=== PATIENT | female | born 1975 | race Caucasian/White ===

== ENCOUNTER → 2017-07-07 | Outpatient (CLI) | payer BC ==
[~2017-07-07] MED LIST: ACHD5005 PO; AMIT25TA9; CYCL10TA9 PO; IBP600T1 PO; LOSA1TAB19; METO-270; NAPR-1067; NORE1TAB95; RT-ALBUTEROL SULF 2.5 MG/3 ML PRE-MIX VIAL IH ONE; SULF1TAB35 PO; TOPI100T11; TOPI200T19 PO; [UNRECOGNIZED DRUG - CODE]; [UNRECOGNIZED DRUG - OTHER] PO
--- NOTE | 2017-07-07 15:56 | Diagnostic Imaging Report ---
CHEST PA/LAT (2 VIEW) Indication: Chronic cough Comparison: 08/19/2016 Findings: No focal pneumonic consolidation, pleural effusion or pneumothorax. Normal heart size and pulmonary vasculature. Impression: No acute cardiopulmonary process or evidence of interstitial lung disease. Dictated by: Dictated on workstation # [id number]
== END ==
LOC: RT 12:39
PROVIDERS: ATTEND Otolaryngology Otolaryngology/Facial Plastic Surgery
DX: R05 Cough (principal)
CPT/HCPCS: 71020; 94060; 94640; 94726; 94729

== ENCOUNTER → 2017-07-13 | Outpatient (CLI) | payer BC ==
[~2017-07-13] MED LIST changes: -RT-ALBUTEROL SULF 2.5 MG/3 ML PRE-MIX VIAL IH ONE
--- NOTE | 2017-07-14 19:30 | Diagnostic Imaging Report ---
EXAMINATION: Digital mammogram bilateral screening with tomosynthesis. INDICATION: Screening. This is the patient's baseline study. At this time, there are no current complaints. The current study was also evaluated with a Computer Aided Detection (CAD) system. FINDINGS: The fibroglandular tissue in both breasts is heterogeneously dense. This does limit the sensitivity of this exam. There is no primary or secondary sign of malignancy noted. The tomographic views fail to show any sign of malignancy either. IMPRESSION: 1. There is no evidence of malignancy. 2. The patient should have her annual bilateral screening mammogram on schedule in June of 2018. ACR BI-RADS Category 1: Negative. Result letter will be mailed to the patient. Note: At least 10% of breast cancer is not imaged by mammography. Dictated on workstation # [id number]
== END ==
LOC: RAD 16:02
PROVIDERS: ATTEND Obstetrics & Gynecology
DX: Z12.31 Encounter for screening mammogram for malignant neoplasm of breast (principal)
CPT/HCPCS: 77067

== ENCOUNTER 2018-01-29 09:51 | Emergency (ER) | payer BC ==
[~2018-01-29] VITALS: Ht 167.6 cm; Wt 90.7 kg
[~2018-01-29 09:51] MED LIST changes: -LOSA1TAB19; +LOSA1TAB26; -METO-270; +METO-387
[2018-01-29] MEDS ORDERED: ANTACID SUSP 30 ML UDC (MYLANTA) PO ONE (10:45)
[2018-01-29] MEDS ORDERED: LIDOCAINE 2% VISCOUS 15 ML UDC PO ONE (10:45)
--- NOTE | 2018-01-29 11:19 | ED Cough/URI ---
General Stated Complaint: CP,SOA Source: patient Exam Limitations: no limitations History of Present Illness Date Seen by Provider: Jan 29, 2018 Time Seen by Provider: 11:17 Initial Comments To ER with reports of central chest pain since about 645 this morning. Pain is in the center of her chest, dull in nature, worsened with deep breathing. She denies any shortness of breath. She denies any unilateral leg swelling. She was formerly on estrogen for migraines but discontinued this by herself about 7-8 months ago. No history of DVT. 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 Nonsmoker. Has recently had a runny nose, sore throat and some greenish nasal secretions. Timing/Duration: constant Severity/Quality: moderate Associated Symptoms: nasal drainage Allergies and Home Medications Allergies Coded Allergies: pseudoephedrine HCl (Unverified Allergy, Unknown, 10/09/16) triprolidine HCl (Unverified Allergy, Unknown, 10/09/16) Home Medications Cyclobenzaprine Hcl 10 Mg Tablet, 1 EACH PO BID, (Reported) Ibuprofen 600 Mg Tab, 600 MG PO Q6HR Prescribed by: KAREN LLAMAS on 07/04/13 0950 Sulfamethoxazole/Trimethoprim 1 Each Tablet, 1 EACH PO BID Prescribed by: SWATI CASTELAN on 10/09/16 1844 Patient Home Medication List Home Medication List Reviewed: Yes Constitutional: see HPI, No chills, No fever EENTM: see HPI Respiratory: see HPI, No cough, No dyspnea on exertion Cardiovascular: see HPI, chest pain Genitourinary: no symptoms reported Musculoskeletal: no symptoms reported Skin: no symptoms reported Psychiatric/Neurological: No Symptoms Reported Hematologic/Lymphatic: No Symptoms Reported Past Qxzlxvm-Ttdkwl-Cdimzj Hx Patient Social History Recent Foreign Travel: No Contact w/Someone Who Travel: No Recent Hopitalizations: No Immunizations Up To Date Tetanus Booster (TDap): Less than 5yrs Seasonal Allergies Seasonal Allergies: No Surgeries Surgeries: Cardiac, Oophorectomy, Tubal Ligation Cardiovascular Cardiac Disorders: Hypertension Neurological Neurological Disorders: Headaches /Migraines Reproductive System Hx Reproductive Disorders: Yes (OVARIAN MASS, dysmenorrhea) 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 Family Medical History Significant Family History: Cancer, Diabetes, Hypertension Physical Exam Vital Signs Vital Signs - First Documented 01/29/18 01/29/18 10:00 12:49 Temp 98.2 Pulse 81 Resp 18 B/P (MAP) 120/80 (93) Pulse Ox 98 O2 Delivery Room Air Capillary Refill : General Appearance: WD/WN, no apparent distress Eyes: Bilateral Eye Normal Inspection, Bilateral Eye PERRL, Bilateral Eye EOMI HEENT: PERRL/EOMI, normal ENT inspection Neck: non-tender, full range of motion Respiratory: normal breath sounds, no respiratory distress, no accessory muscle use Cardiovascular: regular rate, rhythm, no murmur Gastrointestinal: normal bowel sounds, non tender, soft Extremities: normal range of motion, non-tender Neurologic/Psychiatric: alert, normal mood/affect, oriented x 3 Skin: normal color, warm/dry Progress/Results/Core Measures Suspected Sepsis SIRS Temperature: Pulse: Respiratory Rate: Laboratory Tests 01/29/18 11:20: White Blood Count 6.2 Blood Pressure / Mean: Laboratory Tests 01/29/18 11:20: Creatinine 1.11, Platelet Count 187, Total Bilirubin 0.3 Results/Orders Lab Results Laboratory Tests Test 01/29/18 11:20 Range/Units White Blood Count 6.2 4.3-11.0 10^3/uL Red Blood Count 4.11 L 4.35-5.85 10^6/uL Hemoglobin 11.8 11.5-16.0 G/DL Hematocrit 35 35-52 % Mean Corpuscular Volume 84 80-99 FL Mean Corpuscular Hemoglobin 29 25-34 PG Mean Corpuscular Hemoglobin Concent 34 32-36 G/DL Red Cell Distribution Width 12.2 10.0-14.5 % Platelet Count 187 130-400 10^3/uL Mean Platelet Volume 11.1 H 7.4-10.4 FL Neutrophils (%) (Auto) 64 42-75 % Lymphocytes (%) (Auto) 27 12-44 % Monocytes (%) (Auto) 7 0-12 % Eosinophils (%) (Auto) 2 0-10 % Basophils (%) (Auto) 1 0-10 % Neutrophils # (Auto) 4.0 1.8-7.8 X 10^3 Lymphocytes # (Auto) 1.7 1.0-4.0 X 10^3 Monocytes # (Auto) 0.4 0.0-1.0 X 10^3 Eosinophils # (Auto) 0.1 0.0-0.3 10^3/uL Basophils # (Auto) 0.0 0.0-0.1 10^3/uL D-Dimer < 0.27 0.00-0.49 UG/ML Sodium Level 136 135-145 MMOL/L Potassium Level 4.0 3.6-5.0 MMOL/L Chloride Level 106 98-107 MMOL/L Carbon Dioxide Level 25 21-32 MMOL/L Anion Gap 5 5-14 MMOL/L Blood Urea Nitrogen 16 7-18 MG/DL Creatinine 1.11 0.60-1.30 MG/DL Estimat Glomerular Filtration Rate 54 BUN/Creatinine Ratio 14 Glucose Level 115 H 70-105 MG/DL Calcium Level 9.4 8.5-10.1 MG/DL Total Bilirubin 0.3 0.1-1.0 MG/DL Aspartate Amino Transf (AST/SGOT) 15 5-34 U/L Alanine Aminotransferase (ALT/SGPT) 13 0-55 U/L Alkaline Phosphatase 64 40-136 U/L Troponin I < 0.30 <0.30 NG/ML Total Protein 6.8 6.4-8.2 GM/DL Albumin 4.2 3.2-4.5 GM/DL Lipase 32 8-78 U/L My Orders Orders - SWATI CASTELAN APRN Cbc With Automated Diff (01/29/18 10:36) Comprehensive Metabolic Panel (01/29/18 10:36) Lipase (01/29/18 10:36) Troponin I (01/29/18 10:36) Ekg Tracing (01/29/18 10:36) Chest 1 View, Ap/Pa Only (01/29/18 10:36) Fibrin Degradation Products (01/29/18 10:36) Medications Given in ED Current Medications Medications Dose Ordered Sig/Koko Route Start Time Stop Time Status Last Admin Dose Admin Al Hydrox/Mg Hydrox/Simethicone 30 ml ONCE ONCE PO 01/29/18 10:45 01/29/18 10:46 DC 01/29/18 11:21 30 ML Lidocaine HCl 15 ml ONCE ONCE PO 01/29/18 10:45 01/29/18 10:46 DC 01/29/18 11:21 15 ML Vital Signs/I&O Vital Sign - Last 12Hours 01/29/18 01/29/18 10:00 12:49 Temp 98.2 98.2 Pulse 81 72 Resp 18 18 B/P (MAP) 120/80 (93) 118/80 (93) Pulse Ox 98 O2 Delivery Room Air Capillary Refill : Diagnostic Imaging Diagonstic Imaging: Xray Plain Films/CT/US/NM/MRI: chest Comments NAME: CHIKA THOMAS [facility] REC#: [id number] PT STATUS: REG ER : 1975 PHYSICIAN: SWATI CASTELAN APRN ADMIT DATE: 01/29/18/ER Draft Date of Exam:01/29/18 CHEST 1 VIEW, AP/PA ONLY INDICATION: Chest pain. Time of exam 11:36 AM Correlation is made with prior study from 07/07/2017. The heart size is normal. The pulmonary vascularity is unremarkable. The lungs are clear. No infiltrate, effusion or pneumothorax is detected. Impression: No acute cardiopulmonary process is detected. Dictated on workstation # [id number] Dict: 01/29/18 1144 Trans: 01/29/18 1145 [facility] [id number] Interpreted by: MIRIAM MARTINEZ MD Electronically signed by: Departure Impression Impression: Primary Impression: Pleuritic chest pain Disposition: HOME, SELF-CARE Condition: Stable Departure-Patient Inst. Decision time for Depature: 12:07 Referrals: THERESE NOBLE MD (PCP/Family) Primary Care Physician Patient Instructions: Pleuritic Chest Pain (DC) Add. Discharge Instructions: 1. Return to the emergency room for any worsening symptoms 2. Follow-up with doctor next week for recheck 3. Work/School Note: Work Release Form Date Seen in the Emergency Department: Jan 29, 2018 Return to Work: Jan 30, 2018 SWATI CASTELAN APRN Jan 29, 2018 11:19
[2018-01-29 11:36] LABS: BASOPHILS % (AUTO) 1 % (0-10); EOSINOPHILS # (AUTO) 0.1 10^3/uL (0.0-0.3); EOSINOPHILS % (AUTO) 2 % (0-10); HEMATOCRIT 35 % (35-52); HEMOGLOBIN 11.8 G/DL (11.5-16.0); LYMPHOCYTES # (AUTO) 1.7 X 10^3 (1.0-4.0); LYMPHOCYTES % (AUTO) 27 % (12-44); MEAN CORPUSCULAR HEMOGLOBIN 29 PG (25-34); MEAN CORPUSCULAR HGB CONC 34 G/DL (32-36); MEAN CORPUSCULAR VOLUME 84 FL (80-99); MEAN PLATELET VOLUME 11.1 FL (7.4-10.4); MONOCYTES # (AUTO) 0.4 X 10^3 (0.0-1.0); MONOCYTES % (AUTO) 7 % (0-12); NEUTROPHILS % (AUTO) 64 % (42-75); PLATELET COUNT 187 10^3/uL (130-400); RED BLOOD COUNT 4.11 10^6/uL (4.35-5.85); RED CELL DISTRIBUTION WIDTH 12.2 % (10.0-14.5); WHITE BLOOD COUNT 6.2 10^3/uL (4.3-11.0)
--- NOTE | 2018-01-29 11:46 | Diagnostic Imaging Report ---
INDICATION: Chest pain. Time of exam 11:36 AM Correlation is made with prior study from 07/07/2017. The heart size is normal. The pulmonary vascularity is unremarkable. The lungs are clear. No infiltrate, effusion or pneumothorax is detected. Impression: No acute cardiopulmonary process is detected. Dictated by: Dictated on workstation # [id number]
[2018-01-29 12:05] LABS: ALANINE AMINOTRANSFERASE 13 U/L (0-55); ALBUMIN 4.2 GM/DL (3.2-4.5); ALKALINE PHOSPHATASE 64 U/L (40-136); BILIRUBIN,TOTAL 0.3 MG/DL (0.1-1.0); BUN/CREATININE RATIO 14; CALCIUM 9.4 MG/DL (8.5-10.1); CARBON DIOXIDE 25 MMOL/L (21-32); CHLORIDE 106 MMOL/L (98-107); CREATININE SERUM 1.11 MG/DL (0.60-1.30); GFR ESTIMATED 54; GLUCOSE 115 MG/DL (70-105); LIPASE 32 U/L (8-78); SODIUM 136 MMOL/L (135-145); TOTAL PROTEIN 6.8 GM/DL (6.4-8.2)
[2018-01-29 12:49] VITALS: BP 118/80
== END 2018-01-29 12:49 | disposition home or self-care (01) ==
LOC: EDUNIT# 09:51 → ER 09:53
DX: R07.81 Pleurodynia (principal); G43.909 Migraine, unspecified, not intractable, without status migrainosus; I10 Essential (primary) hypertension; Z98.51 Tubal ligation status; Z88.8 Allergy status to other drugs, medicaments and biological substances; Z88.1 Allergy status to other antibiotic agents
CPT/HCPCS: 36415; 71045; 80053; 83690; 84484; 85025; 85379

== ENCOUNTER → 2018-12-12 | Outpatient (CLI) | payer BC, OTHER ==
[~2018-12-12] MED LIST changes: +CATHETER FLUSH 10 ML SYR IV PRN; +IOHEXOL 350 MG/ML 100 ML (OMNIPAQUE 350) VIAL IV ONE; +NS 100 ML (IVPB) BAG IV ONE; +RECEIVED CONTRAST (Hold Metformin) IV SCH
[2018-12-12 17:11] LABS: MEAN PLATELET VOLUME 10.6 FL (7.4-10.4); RED BLOOD COUNT 4.27 10^6/uL (4.35-5.85); RED CELL DISTRIBUTION WIDTH 13.1 % (10.0-14.5); WHITE BLOOD COUNT 6.9 10^3/uL (4.3-11.0)
[2018-12-12 17:30] LABS: ALBUMIN 4.4 GM/DL (3.2-4.5); BILIRUBIN,TOTAL 0.3 MG/DL (0.1-1.0); CALCIUM 9.5 MG/DL (8.5-10.1); CREATININE SERUM 1.04 MG/DL (0.60-1.30); POTASSIUM 3.4 MMOL/L (3.6-5.0); TOTAL PROTEIN 7.2 GM/DL (6.4-8.2)
--- NOTE | 2018-12-12 17:56 | Diagnostic Imaging Report ---
PROCEDURE: CT abdomen and pelvis with contrast. TECHNIQUE: Multiple contiguous axial images were obtained through the abdomen and pelvis after administration of intravenous contrast. INDICATION: Abdominal pain. COMPARISON: None available. FINDINGS: Lower chest: The lung bases are clear. No pericardial or pleural effusion. Peritoneum: No free intraperitoneal air or fluid. Liver and biliary system: There is a circumscribed 1.5 x 1.1 cm hypodense cyst within the left hepatic lobe. Remainder of the liver is normal. The gallbladder is normal. No biliary duct dilation. Spleen and Pancreas: Spleen is normal. The pancreas enhances normally without mass lesion or peripancreatic inflammatory changes. Adrenals: Normal. tract: The kidneys enhance normally without suspicious mass or obstruction. Urinary bladder is distended without wall thickening. There is a large delayed enhancing intramural mass within the uterine body and fundus measuring 4.1 x 5.0 cm. GI tract: Stomach is decompressed. No bowel obstruction. No pericolonic inflammatory changes. Normal appendix. Vasculature and Lymph nodes: Normal caliber aorta. No abdominal or pelvic lymphadenopathy. Musculoskeletal: No concerning osseous lesion. IMPRESSION: 1. No acute obstructive or inflammatory process in the abdomen or pelvis. 2. Large intramural fibroid within the uterine body/fundus measuring up to 5 cm. Dictated by: Dictated on workstation # [id number]
== END ==
LOC: RAD 16:47
PROVIDERS: ATTEND Physician Assistant
DX: D25.1 Intramural leiomyoma of uterus (principal)
CPT/HCPCS: 36415; 74177; 80053; 83690; 84703; 85027

== ENCOUNTER → 2019-01-10 | Outpatient (CLI) | payer BC ==
[~2019-01-10] MED LIST changes: -CATHETER FLUSH 10 ML SYR IV PRN; -IOHEXOL 350 MG/ML 100 ML (OMNIPAQUE 350) VIAL IV ONE; -NS 100 ML (IVPB) BAG IV ONE; -RECEIVED CONTRAST (Hold Metformin) IV SCH
--- NOTE | 2019-01-10 12:14 | Diagnostic Imaging Report ---
PROCEDURE: US Non-ob pelvis comp/trans. TECHNIQUE: Multiple realtime grayscale images were obtained of the pelvis in various projections endovaginally. Transabdominal imaging was also performed. INDICATION: Abnormal uterine bleeding and uterine fibroid. The uterus measures 9.1 x 5.7 x 6.1 cm. Endometrium is 6 cm in thickness. Mass noted in the fundus of the uterus on CT study from 12/12/2018 is not as well seen by ultrasound. There does appear to be a fundal fibroid measuring approximately 2 cm in size. There is generalized parenchymal heterogeneity present and lesion may actually be larger than that correlating with the CT abnormality. No other myometrial masses are seen. The left ovary is not visualized and may be surgically absent. Right ovary measures 1.6 x 1.5 x 1.4 cm. No adnexal mass or free fluid is seen. IMPRESSION: Heterogeneous uterus and at least a 2 cm fundal fibroid is present. No definite lesion the size of the mass noted on CT is identified. Perhaps MRI would be useful for better characterization. No other significant abnormality is detected. Dictated by: Dictated on workstation # [id number]
--- NOTE | 2019-01-10 19:18 | Diagnostic Imaging Report ---
INDICATION: Palpable lump in the upper-outer right breast. COMPARISON: Comparison is made with prior mammogram from 07/13/2017. TECHNIQUE: 2D and 3D bilateral diagnostic mammography was performed with computer-aided detection (CAD) system. BB marker was placed at the area of palpable abnormality in the upper-outer right breast. FINDINGS: Both breasts are heterogeneously dense, limiting the sensitivity of mammography. No mass or malignant appearing microcalcifications are seen. Axillae are unremarkable. IMPRESSION: No mammographic features suspicious for malignancy are identified. Even so, directed sonographic interrogation of the area of palpable abnormality in the upper-outer right breast is recommended and will be performed today. ACR BI-RADS Category 0: Incomplete. (Needs additional imaging evaluation). Result letter will be mailed to the patient. Note: At least 10% of breast cancer is not imaged by mammography. Dictated by: Dictated on workstation # [id number]
--- NOTE | 2019-01-10 19:56 | Diagnostic Imaging Report ---
INDICATION: Palpable lump in the upper-outer right breast. Study is performed for further evaluation. Correlation is made with diagnostic mammogram earlier the same day. FINDINGS: Sonographic interrogation of the area of lump in the upper outer right breast was performed. No sonographic abnormality is seen. No solid or cystic mass is detected. IMPRESSION: No sonographic abnormality is identified. Continued close clinical and self breast exam is recommended to confirm stability of the palpable abnormality. ACR BI-RADS Category 1: Negative. Dictated by: Dictated on workstation # [id number]
== END ==
LOC: RAD 08:31
PROVIDERS: ATTEND Obstetrics & Gynecology
DX: N63.11 Unspecified lump in the right breast, upper outer quadrant (principal); D25.1 Intramural leiomyoma of uterus
CPT/HCPCS: 76830; 76856; 77066

== ENCOUNTER 2019-01-21 05:35 | Outpatient (CLI) | payer BC ==
[~2019-01-21] VITALS: Ht 162.6 cm; Wt 88.0 kg
[~2019-01-21 05:35] MED LIST changes: -AMIT25TA9; +AMIT25TA9 PO; -LOSA1TAB26; +LOSA1TAB26 PO; -METO-387; +METO-387 PO; -TOPI100T11; +TOPI100T11 PO
[2019-01-21] MEDS ORDERED: MELA5TAB14 PO (13:06)
[2019-01-21] MEDS ORDERED: ESOM20CA58 PO (13:06)
[2019-01-21] MEDS ORDERED: CYCL10TA9 PO ×2 (13:06)
[2019-01-21] MEDS ORDERED: POTA10TA10 PO (13:06)
== END 2019-01-21 13:15 ==
LOC: PREOP 05:35
PROVIDERS: ATTEND Obstetrics & Gynecology
DX: Z01.818 Encounter for other preprocedural examination (principal)

== ENCOUNTER 2019-01-24 08:38 | Day surgery (SDC) | payer BC ==
[~2019-01-24] VITALS: Ht 162.6 cm; Wt 88.0 kg
[~2019-01-24 08:38] MED LIST changes: +ESOM20CA58 PO; +MELA5TAB14 PO; +POTA10TA10 PO
[2019-01-24 09:31] LABS: BASOPHILS % (AUTO) 1 % (0-10); EOSINOPHILS # (AUTO) 0.1 10^3/uL (0.0-0.3); EOSINOPHILS % (AUTO) 2 % (0-10); HEMATOCRIT 35 % (35-52); HEMOGLOBIN 11.8 G/DL (11.5-16.0); LYMPHOCYTES # (AUTO) 1.4 X 10^3 (1.0-4.0); LYMPHOCYTES % (AUTO) 28 % (12-44); MEAN CORPUSCULAR HEMOGLOBIN 28 PG (25-34); MEAN CORPUSCULAR HGB CONC 34 G/DL (32-36); MEAN CORPUSCULAR VOLUME 82 FL (80-99); MEAN PLATELET VOLUME 11.2 FL (7.4-10.4); MONOCYTES # (AUTO) 0.3 X 10^3 (0.0-1.0); MONOCYTES % (AUTO) 7 % (0-12); NEUTROPHILS # (AUTO) 3.2 X 10^3 (1.8-7.8); NEUTROPHILS % (AUTO) 64 % (42-75); PLATELET COUNT 212 10^3/uL (130-400); RED CELL DISTRIBUTION WIDTH 12.8 % (10.0-14.5)
--- NOTE | 2019-01-24 09:38 | Discharge Inst-Women's Service ---
Discharge Inst-Women's Serv Depart Medication/Instructions New, Converted or Re-Newed RX: RX on Chart Consults/Follow Up Additional Follow Up: Yes Orders/Referrals Dr. Goldberg in 7-[address] Ashlyn Koo in 8 weeks Activity Activity: Activity as Tolerated Driving Instructions: No Driving for 1 Week NO SMOKING: NO SMOKING Nothing Inside Vagina: No Douching, No [place], No Tampons Diet Discharge Diet: No Restrictions Symptoms to Report to : Bleeding Excessive, Pain Increased, Fever Over 101 Degrees F, Vaginal Bleeding Increase, Questions/Concerns For Any Problems or Questions: Contact Your Physician Skin/Wound Care Infection Signs and Symptoms: Increased Redness, Foul Odor of Wound, Increased Drainage, Skin Itchy or Has a Rash, Increased Swelling, Temperature Above 101 F Operative Area Clean and Dry: Keep Incision Clean/Dry Stitches/[place]/Dermabond: Dermabond, Care of Stitches Bathing Instructions: KAREN Link DO Jan 24, 2019 09:38
[2019-01-24] MEDS ORDERED: metroNIDAZOLE 500MG/100ML IVPB 100 ML ONE (09:40)
[2019-01-24] MEDS: LACTATED RINGERS 1,000 ML IV SCH ×2 (09:40→18:10)
[2019-01-24] MEDS ORDERED: SIME80TA16 PO (09:40)
[2019-01-24] MEDS ORDERED: DOCU100C37 PO (09:40)
[2019-01-24] MEDS ORDERED: IBUP-844 PO (09:40)
[2019-01-24] MEDS ORDERED: ceFAZolin 2 GM IV Premixed 50 ML ONE (09:40)
[2019-01-24] MEDS ORDERED: HYDR-34 PO (09:40)
[2019-01-24] MEDS ORDERED: BUPIVACAINE 0.25% 30 ML (SENSORCAINE) VIAL ONE (09:43)
[2019-01-24] MEDS ORDERED: CHLORASEPTIC LOZENGE MM PRN (09:45)
[2019-01-24] MEDS ORDERED: ANTACID SUSP 30 ML UDC (MYLANTA) PO PRN (09:45)
[2019-01-24] MEDS ORDERED: ZOLPIDEM 5 MG (AMBIEN) TAB PO PRN (09:45)
[2019-01-24] MEDS ORDERED: DOCUSATE SODIUM 100 MG (COLACE) CAP PO PRN (09:45)
[2019-01-24] MEDS ORDERED: HYDROcodone/APAP 7.5 MG/325 MG (LORTAB, LORCET PLUS) TABLET PO PRN (09:45)
[2019-01-24] MEDS ORDERED: SIMETHICONE 80 MG (MYLICON) CHEW PO PRN (09:45)
[2019-01-24] MEDS ORDERED: LACTATED RINGERS 1,000 ML IV PRN (09:49)
[2019-01-24] MEDS ORDERED: LACTATED RINGERS 1,000 ML IV ONE (09:49)
[2019-01-24] MEDS ORDERED: FAMOTIDINE 20MG/2ML IV (PEPCID) ONE (09:55)
[2019-01-24] MEDS ORDERED: fentaNYL INJECTION 100 MCG/2 ML AMP ONE ×2 (09:56→11:14)
[2019-01-24] MEDS ORDERED: MIDAZOLAM 2 MG/2 ML (VERSED) VIAL ONE (09:56)
[2019-01-24] MEDS ORDERED: ROCURONIUM 10 MG/ML 5 ML SYRINGE IV ONE (09:56)
[2019-01-24] MEDS ORDERED: proPOfol 200 MG/20 ML (DIPRIVAN) VIAL IV ONE (09:56)
[2019-01-24] MEDS ORDERED: LIDOCAINE PF 2% 5 ML (XYLOCAINE) VIAL ONE (09:56)
[2019-01-24] MEDS ORDERED: SEVOFLURANE (ULTANE) 15 ML INHAL SOLN ONE ×7 (09:58→11:50)
[2019-01-24] MEDS ORDERED: DEXAMETHASONE 10 MG/ML (DECADRON) 1 ML VIAL ONE (09:58)
[2019-01-24] MEDS ORDERED: ONDANSETRON 4 MG/2 ML (SDV) Z0FRAN IV ONE (10:00)
[2019-01-24] MEDS ORDERED: ceFAZolin 2 GM IV Premixed 50 ML IV ONE (10:00)
[2019-01-24] MEDS ORDERED: metroNIDAZOLE 500MG/100ML IVPB 100 ML IV ONE (10:00)
[2019-01-24] MEDS ORDERED: FAMOTIDINE 20MG/2ML IV (PEPCID) IV ONE (10:00)
[2019-01-24 10:15] VITALS: BP 136/94
--- NOTE | 2019-01-24 10:24 | Progress Note-Pre Operative ---
Pre-Operative Progress Note H&P Reviewed The H&P was reviewed, patient examined and no changes noted. Date Seen by Provider: Jan 24, 2019 Time Seen by Provider: 10:15 Date H&P Reviewed: Jan 24, 2019 Time H&P Reviewed: 10:15 Pre-Operative Diagnosis: CPP, Fibroid uterus, AUB KAREN LLAMAS DO Jan 24, 2019 10:24
[2019-01-24] MEDS ORDERED: GLYCOPYRROLATE 0.2 MG/ML (ROBINUL) 2 ML VIAL ONE (11:44)
[2019-01-24] MEDS ORDERED: NEOSTIGMINE 1 MG/ML 5 ML SYRINGE ONE (11:44)
[2019-01-24] MEDS ORDERED: morphine INJ 10 MG/ML 1ML (SYR OR VIAL) IVP ONE (12:15)
[2019-01-24] MEDS ORDERED: ONDANSETRON 4 MG/2 ML (SDV) Z0FRAN IVP PRN (12:15)
[2019-01-24] MEDS ORDERED: MEPERIDINE (DEMEROL) INJ 50 MG/ML IVP ONE (12:15)
[2019-01-24] MEDS: KETOROLAC 30 MG/ML VIAL IV PRN ×2 (12:35→18:07)
--- NOTE | 2019-01-24 13:05 | NUR ---
CHIKA THOMAS presented to unit via BED from RECOVERY accompanied by GEOVANNA TOVAR RN AND KANU CLAYTON RN,FOLLOWING SURGERY. VS taken. REPORT RECIEVED. CHIKA THOMAS oriented to bed controls, call light, TV, heat, and A/C controls.
[2019-01-24 13:08] VITALS: BP 139/93
[2019-01-24] MEDS: ONDANSETRON 4 MG/2 ML (SDV) Z0FRAN IV PRN ×3 (14:20→22:04)
[2019-01-24 15:40] VITALS: BP 127/80
--- NOTE | 2019-01-24 17:25 | NUR ---
Dr Goldberg rounded. Discussed plan of care with pt and pt's family. They verbalized understanding. Lap sites open to air via Dr Goldberg.
--- NOTE | 2019-01-24 19:33 | OPERATIVE REPORT ---
DATE OF SERVICE: 01/24/2019 PREOPERATIVE DIAGNOSES: 1. A 43-year-old female with fibroid uterus. 2. Abnormal uterine bleeding. 3. Chronic pelvic pain. POSTOPERATIVE DIAGNOSES: 1. A 43-year-old female with fibroid uterus. 2. Abnormal uterine bleeding. 3. Chronic pelvic pain. PROCEDURE PERFORMED: Robotic-assisted total laparoscopic hysterectomy with right salpingectomy. SURGEON: Alpesh Llamas DO. SPECIAL MACHINE STITCHER: Lisa Alanis, nurse practitioner student. ANESTHESIA: General endotracheal. ESTIMATED BLOOD LOSS: Minimal. URINE OUTPUT: 150 mL clear at the end of procedure. FLUIDS: 1200 mL lactated Ringer's solution. FINDINGS: A bulky multilobular-appearing uterus with multiple subserosal fibroids and some apparent intramural fibroids, grossly normal-appearing right ovary, surgically absent left ovary, right fallopian tube with evidence of previous tubal ligation. SPECIMEN SENT: Uterus and right fallopian tube. INDICATIONS: This 43-year-old female patient returned to my office with frustration about ongoing bleeding as well as chronic pelvic pain. The patient reports in the past six months, it has gotten much heavier and much more painful. She has been undergoing more conservative measures for the past 4-5 years as I have been seeing and taking care of her for the past 5 years. She is wishing to proceed with more definitive measures. We repeated ultrasound showing slightly enlarged multiple fibroids throughout the uterus itself. I discussed with the patient continuing suppressive therapy in the form of either Depo-Lupron, Depo-Provera or even continuous control to prevent periods; however, due to the amount of pain she is having, she is wishing to proceed with more definitive measures. The risks of hysterectomy were discussed with the patient in detail including risks of bleeding, infection, damage to surrounding structures including, but not limited to bowel, bladder, ureter or kidney, possible need for reoperation, postoperative complications that could occur, postoperative expectations, recovery timeframe, risk from anesthesia and even . After everything was discussed with the patient, consent was obtained in the preoperative area and the patient was taken to the operating room. OPERATIVE REPORT IN DETAIL: Once in the operating room, general anesthesia was found to be adequate, placed in dorsal lithotomy position and prepped and draped in normal sterile fashion. Timeout was performed. A Arce catheter was placed using sterile technique. A weighted speculum was inserted in the patient's vagina. A right angle retractor was used to visualize the cervix, which was grasped at 12 o'clock position using a long Allis clamp and #0 Vicryl suture was then placed in the anterior lip of the cervix and the suture was then used as my retraction point. Allis clamp was removed. I then gently sounded the uterine cavity that was found to be 8 cm. I then selected an 8 cm Emiliana uterine manipulator and a 3.5 cm colpotomy ring advancing the manipulator tip into the uterine fundus and deployed the balloon and I advanced a colpotomy ring around the vaginal fornix after which excellent bimanual manipulation is appreciated on exam. I then removed all the other instruments from the patient's vagina. I performed a change gloves. I turned my attention to the abdomen where infraumbilically I infiltrated this area using 0.25% Marcaine, making an 8 mm incision with a knife and directed a Veress needle through the incision until intraperitoneal placement was confirmed using saline drop test. I then proceeded with insufflation using CO2 gas and opening pressure of 4 mmHg was noted. I proceeded with a maximum pressure of 15 mmHg at which point, I removed the Veress needle and introduced an 8 mm blunt da Daniel camera trocar. Once this was in place, I am able to confirm intraperitoneal placement using the da Daniel laparoscope. A brief scan of the upper abdominal anatomy and my entry site revealed grossly appearing normal anatomy with no evidence of damage upon entry. I then had the patient placed in steep Trendelenburg and I am able see all of the pelvic findings as described above. I placed two lateral trocars of both 8 mm trocars approximately 8 cm lateral to my infraumbilical trocar. The skin was infiltrated using 0.25% Marcaine, 8 mm incisions were made with the knife and the trocars were placed under direct visualization of the laparoscope. Once these were in place, I brought in the da Daniel robot and docked in the appropriate fashion. Placing the vessel sealer in the left hand and monopolar sarahi in the right hand, I performed the following dissection: On the right side, I started with the uteroovarian ligament, bipolar cauterized and transected using the vessel sealer. I then created a window in the mesosalpinx and took this laterally amputating the fallopian tube from its blood supply. I then grasped the round ligament, bipolar cauterized and transected using the vessel sealer, grasped the entire broad ligament, bipolar cauterized and transected using the vessel sealer down to the level of the lower uterine segment, at which point I the anterior and posterior leaflets of the broad ligament. The anterior leaflet of the broad ligament was taken around the anterior vaginal fornix and posterior leaflet was taken around the posterior vaginal fornix. This allows me to skeletonize the uterine vessels laterally, which are bipolar cauterized and transected using the vessel sealer. I then approached the left side where there is no left adnexa. The ovary and fallopian tube are absent. I started at the remnant of the uteroovarian ligament, bipolar cauterized and transected using the vessel sealer. I then grasped the round ligament, bipolar cauterized this and transected using vessel sealer. I then grasped the entire broad ligament, bipolar cauterized and transected using the vessel sealer down to the level of the lower uterine segment where in a similar fashion, I the anterior and posterior leaflets of the broad ligament. Anterior leaflet was taken around to the other side dissection on the anterior vaginal fornix. The posterior leaflet in a similar fashion is taken around to the posterior side on the posterior vaginal fornix. This allows me to skeletonize the uterine vessels laterally which are bipolar cauterized and transected using the vessel sealer. I then created a colpotomy at 12 o'clock position using monopolar sarahi and took this circumferentially around the vaginal fornix amputating the cervix away from the vaginal cuff. The entire specimen was then removed through the vagina leaving the ovary in place. I then proceeded with closing the vaginal cuff. In the lateral vaginal apices, I used 2-0 Vicryl suture in a [id number] fashion colposuspending them to the uterosacral ligaments. I closed the remainder of the vaginal cuff using 2-0 V-Loc in a running fashion, after which there was no active bleeding noted from any of my dissection planes. I then copiously irrigated the pelvis with normal saline and no active bleeding noted from any of my dissection planes. I undocked da Daniel robot and proceeded with the remainder of the case laparoscopically after scrubbing back into the surgery. I then placed Surgiflo over all my planes of dissection for excellent postoperative hemostasis management. Once again, there was no active bleeding noted from any of my dissection planes. I had taken the patient out of steep Trendelenburg and removed the lateral trocars under direct visualization of the laparoscope. The infraumbilical trocar was left in place to release insufflation and to introduce 10 mL of 0.25% Marcaine for postoperative pain management. I then removed this trocar as well, closed the skin using 4-0 Monocryl in interrupted subcuticular stitches. Dermabond was applied to the incision and sterile dressing with adhesive white tape. The patient tolerated the procedure well and sent to recovery in stable condition. Lap and sponge counts were correct at the end of the procedure. Instrument count was correct as well. Arce catheter was left in place. Ancef 2 grams, 500 mg of Flagyl were given preoperatively for infection prophylaxis. Job ID: [id number] DocumentID: [id number] Dictated Date: 01/24/2019 12:02:09 Carrier Blower Date: 01/24/2019 19:33:13 Dictated By: ALPESH LLAMAS DO
[2019-01-24] MEDS ORDERED: FLU QUADRIvalent (5+ YOA) 2018-2019 (AFLURIA) 0.5 ML IM ONE (20:15)
[2019-01-24 20:30] VITALS: BP 114/76
[2019-01-25] VITALS: BP 114/73
[2019-01-25] MEDS ORDERED: IBUPROFEN 600 MG (MOTRIN) TAB PO PRN (02:15)
[2019-01-25 06:25] VITALS: BP 100/58
[2019-01-25 07:30] VITALS: BP 107/61
--- NOTE | 2019-01-25 07:48 | Anesthesia-General Post-Op ---
General Patient Condition Mental Status/LOC: Same as Preop Cardiovascular: Satisfactory Nausea/Vomiting: Absent Respiratory: Satisfactory Pain: Controlled Complications: Absent Post Op Complications Complications None Follow Up Care/Instructions Patient Instructions None needed. Anesthesia/Patient Condition Patient Condition Patient is doing well, no complaints, stable vital signs, no apparent adverse anesthesia problems. No complications reported per nursing. CARI BELTRÁN CRNA Jan 25, 2019 07:48
--- OUTSIDE RECORDS SUMMARY | 2019-01-27 02:17 | XMS REPORT ---
Author Author KRIS BASS Organization [facility] Address [address] [place] [address] Care Team Providers Care Tree Scout Name Role Phone BEV BASSYL Unavailable PROBLEMS Unknown Problems ALLERGIES Substance Reaction Event Type Date Status N.K.D.A. Unknown Non Drug Allergy Nov, Unknown SOCIAL HISTORY No smoking Hx information available PLAN OF CARE Activity Details Follow Up prn Reason: VITAL SIGNS Height 63 in 2016-12-26 Weight 195 lbs 2016-12-26 Temperature 99.3 degrees Fahrenheit 2016-12-26 Heart Rate 103 bpm 2016-12-26 Respiratory Rate 18 2016-12-26 BMI 34.54 kg/m2 2016-12-26 Blood pressure systolic 133 mmHg 2016-12-26 Blood pressure diastolic 88 mmHg 2016-12-26 MEDICATIONS Medication Instructions Dosage Frequency Start Date End Date Duration Status Tessalon Perles 200 mg Orally Three times a day prn cough 1 capsule as needed Nov, Dec, 10 days Active Hydrochlorothiazide Active Flonase Allergy Relief 50 MCG/ACT Nasally twice a day 1 spray in each nostril 12h Oct, 30 day(s) Active Topamax Active Flexeril Active Elavil Active Potassimin Active RESULTS Name Result Date Reference Range STREP A (IN HOUSE) STREP A negative Control + Lot # [id number] Exp date 07/27/2017 PROCEDURES Procedure Date Ordered Related Diagnosis Body Site STREP A ASSAY W/OPTIC Dec 26, 2016 Office Visit, Est Pt., Level 4 Dec 26, 2016 IMMUNIZATIONS No Known Immunizations
--- OUTSIDE RECORDS SUMMARY | 2019-01-27 02:17 | XMS REPORT ---
Author Author KRIS BASS Organization [facility] Address [address] [place] [address] Care Team Providers Care Hydrogen Cell Tender Name Role Phone [email or web address] Unavailable PROBLEMS Unknown Problems ALLERGIES No Known Allergies SOCIAL HISTORY Never Assessed PLAN OF CARE Activity Details Follow Up prn Reason: VITAL SIGNS Height 63 in 2017-01-09 Weight 196.3 lbs 2017-01-09 Temperature 98.1 degrees Fahrenheit 2017-01-09 Heart Rate 94 bpm 2017-01-09 Respiratory Rate 18 2017-01-09 BMI 34.77 kg/m2 2017-01-09 Blood pressure systolic 123 mmHg 2017-01-09 Blood pressure diastolic 70 mmHg 2017-01-09 MEDICATIONS Medication Instructions Dosage Frequency Start Date End Date Duration Status Lo Loestrin Fe Active Hydrochlorothiazide Active Elavil Active Nexium Active Flexeril Active Topamax Active Flonase Allergy Relief 50 MCG/ACT Nasally twice a day 1 spray in each nostril 12h Oct, 30 day(s) Active Potassium Chloride Active Fish Oil Active Bactrim DS 800-160 MG Orally Twice a day 1 tablet 12h Dec,Dec 10 day(s) Active Tessalon Perles 200 mg Orally Three times a day prn cough 1 capsule as needed Nov, Dec, 10 days Active Naproxen Sodium Active Cinnamon Active RESULTS No Results PROCEDURES Procedure Date Ordered Result Body Site DEPO MEDROL 80 MG/ML Jan 09, 2017 THER/PROPH/DIAG INJ, SC/IM Jan 09, 2017 IMMUNIZATIONS Vaccine Route Administration Date Status DEPO MEDROL 80 MG/ML IM Intramuscular Jan 09, 2017 Administered
--- OUTSIDE RECORDS SUMMARY | 2019-01-27 02:17 | XMS REPORT ---
Author Author MARTHA ZHANG Organization [facility] Address [address] [place] [address] Care Team Providers Care Senior Formulation Scientist Name Role Phone VICENTE MARTHA Unavailable PROBLEMS Type Condition ICD9-CM Code [id number] Code Onset Dates Condition Status SNOMED Code Problem Adjustment disorder with depressed mood F43.21 Active [id number] ALLERGIES No Information ENCOUNTERS Encounter Location Date Diagnosis [facility] [id number] [place] [address] [phone] Oct, [facility] [address] [phone] Sep, Adjustment disorder with depressed mood F43.21 [facility] [id number] [place] [address] [id number] Feb, Cough R05 and Candidiasis B37.9 [facility] [address] [phone] Dec, Acute non-recurrent maxillary sinusitis J01.00 [facility] [id number] [place] [address] [phone] Nov, Cough R05 and Sore throat J02.9 [facility] [id number] [place] [address] [phone] Nov, Acute bacterial conjunctivitis of left eye H10.32 [facility] [id number] [place] [address] [phone] Oct, Acute recurrent ethmoidal sinusitis J01.21 IMMUNIZATIONS No Known Immunizations SOCIAL HISTORY Never Assessed REASON FOR VISIT Intake PLAN OF CARE Activity Details Follow Up next available Reason:depression VITAL SIGNS MEDICATIONS Unknown Medications RESULTS No Results PROCEDURES Procedure Date Ordered Result Body Site Psych diagnostic evaluation, established patient Oct 17, 2018 INSTRUCTIONS MEDICATIONS ADMINISTERED No Known Medications
--- OUTSIDE RECORDS SUMMARY | 2019-01-27 02:18 | XMS REPORT | Continuity of Care Document ---
Author Author [facility] Organization [facility] Address Unknown Phone Unavailable Allergies Active Description Code Type Severity Reaction Onset Reported/Identified Relationship to Patient Clinical Status Yes pseudoephedrine HCl [id number] Drug Allergy Unknown N/A 10/09/2016 Yes triprolidine HCl [id number] Drug Allergy Unknown N/A 10/09/2016 Medications There is no data. 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 05/18/2015 THERESE NOBLE MD Ot 784.0 05/22/2015 THERESE NOBLE MD Ot 784.0 04/06/2016 JANET MCALLISTER MD Ot I10 ESSENTIAL (PRIMARY) HYPERTENSION 04/06/2016 JANET MCALLISTER MD Ot K21.9 GASTRO-ESOPHAGEAL REFLUX DISEASE WITHOUT 04/06/2016 JANET MCALLISTER MD Ot R00.0 TACHYCARDIA, UNSPECIFIED 04/06/2016 JANET MCALLISTER MD Ot R07.89 OTHER CHEST PAIN 08/19/2016 JANET MCALLISTER MD Ot I10 ESSENTIAL (PRIMARY) HYPERTENSION 08/19/2016 JANET MCALLISTER MD Ot K21.9 GASTRO-ESOPHAGEAL REFLUX DISEASE WITHOUT 08/19/2016 JANET MCALLISTER MD Ot R00.0 TACHYCARDIA, UNSPECIFIED 08/19/2016 JANET MCALLISTER MD Ot R07.89 OTHER CHEST PAIN 08/19/2016 MANDEEP MOSQUEDA MD Ot I10 ESSENTIAL (PRIMARY) HYPERTENSION 08/19/2016 MANDEEP MOSQUEDA MD Ot R07.89 OTHER CHEST PAIN 08/19/2016 MANDEEP MOSQUEDA MD Ot R07.9 CHEST PAIN, UNSPECIFIED 08/19/2016 MANDEEP MOSQUEDA MD Ot Z79.899 OTHER CUSTODIAL (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 THERAPY 08/23/2016 JAYLIN BARCENAS, MANDEEP San Ot I10 ESSENTIAL (PRIMARY) HYPERTENSION 08/23/2016 JAYLIN BARCENAS, MANDEEP San Ot R07.89 OTHER CHEST PAIN 08/23/2016 JAYLIN BARCENAS, MANDEEP San Ot R07.9 CHEST PAIN, UNSPECIFIED 08/23/2016 JAYLIN BARCENAS, MANDEEP San Ot Z79.899 OTHER CUSTODIAL (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 THERAPY 10/09/2016 SWATI CASTELAN APRN Ot I10 ESSENTIAL (PRIMARY) HYPERTENSION 10/09/2016 SWATI CASTELAN APRN Ot K52.9 NONINFECTIVE GASTROENTERITIS AND COLITIS 10/09/2016 SWATI CASTELAN APRN Ot N39.0 URINARY TRACT INFECTION, SITE NOT SPECIF 10/09/2016 SWATI CASTELAN FOOD EDITOR Ot R11.2 NAUSEA WITH VOMITING, UNSPECIFIED 10/09/2016 SWATI CASTELAN APRN Ot R51 HEADACHE 10/09/2016 SWATI CASTELAN APRN Ot Z79.899 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 (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 THERAPY 10/26/2016 SWATI CASTELAN FOOD EDITOR Ot I10 ESSENTIAL (PRIMARY) HYPERTENSION 10/26/2016 SWATI CASTELAN APRN Ot K52.9 NONINFECTIVE GASTROENTERITIS AND COLITIS 10/26/2016 SWATI CASTELAN APRN Ot N39.0 URINARY TRACT INFECTION, SITE NOT SPECIF 10/26/2016 SWATI CASTELAN FOOD EDITOR Ot R11.2 NAUSEA WITH VOMITING, UNSPECIFIED 10/26/2016 SWATI CASTELAN APRN Ot R51 HEADACHE 10/26/2016 SWATI CASTELAN FOOD EDITOR Ot Z79.899 OTHER CUSTODIAL (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 THERAPY 07/06/2017 JANET MCALLISTER MD Ot I10 ESSENTIAL (PRIMARY) HYPERTENSION 07/06/2017 JANET MCALLISTER MD Ot K21.9 GASTRO-ESOPHAGEAL REFLUX DISEASE WITHOUT 07/06/2017 JANET MCALLISTER MD Ot R00.0 TACHYCARDIA, UNSPECIFIED 07/06/2017 JANET MCALLISTER MD Ot R07.89 OTHER CHEST PAIN 07/24/2017 JANUARY BARCENAS, KAREN Judd Ot R05 COUGH 08/01/2017 KAREN LLAMAS DO Ot Z12.31 ENCNTR SCREEN MAMMOGRAM FOR MALIGNANT NE 01/29/2018 SWATI CASTELAN APRN Ot G43.909 MIGRAINE, UNSP, NOT INTRACTABLE, WITHOUT 01/29/2018 SWATI CASTELAN FOOD EDITOR Ot I10 ESSENTIAL (PRIMARY) HYPERTENSION 01/29/2018 SWATI CASTELAN APRN Ot R07.81 PLEURODYNIA 01/29/2018 SWATI CASTELAN FOOD EDITOR Ot Z88.1 ALLERGY STATUS TO OTHER ANTIBIOTIC AGENT 01/29/2018 SWATI CASTELAN APRN Ot Z88.8 ALLERGY STATUS TO OTH DRUG/MEDS/BIOL SUB 01/29/2018 SWATI CASTELAN APRN Ot Z98.51 TUBAL LIGATION STATUS 05/04/2018 KAREN LLAMAS DO Ot 625.9 FEM GENITAL SYMPTOMS NOS 05/04/2018 KAREN LLAMAS DO Ot 620.9 NONINFL DIS OVA/ADNX NOS 05/04/2018 KAREN LLAMAS DO Ot V72.63 PRE-PROCEDURAL LABORATORY EXAMINATION 05/04/2018 KAREN LLAMAS DO Ot V74.8 SCREEN-BACTERIAL DIS NEC 12/14/2018 AUNDREA SAN Ot D25.1 INTRAMURAL LEIOMYOMA OF UTERUS 12/26/2018 AUNDREA SAN Ot D25.1 INTRAMURAL LEIOMYOMA OF UTERUS 01/10/2019 KAREN LLAMAS DO Ot D25.1 INTRAMURAL LEIOMYOMA OF UTERUS 01/10/2019 KAREN LLAMAS DO Ot N63.11 UNSPECIFIED LUMP IN THE RIGHT BREAST, UP 01/22/2019 KAREN LLAMAS DO Ot Z01.818 ENCOUNTER FOR OTHER PREPROCEDURAL EXAMIN 01/24/2019 KAREN LLAMAS DO Ot D25.1 INTRAMURAL LEIOMYOMA OF UTERUS 01/24/2019 KAREN LLAMAS DO, Ot N63.11 UNSPECIFIED LUMP IN THE RIGHT BREAST, UP Procedures There is no data. Results Test Result Range Complete blood count (CBC) with automated white blood cell (WBC) differential - 08/19/16 09:25 Blood leukocytes automated count (number/volume) 5.2 10*3/uL 4.3-11.0 Blood erythrocytes automated count (number/volume) 4.12 10*6/uL 4.35-5.85 Venous blood hemoglobin measurement (mass/volume) 12.4 g/dL 11.5-16.0 Blood hematocrit (volume fraction) 36 % 35-52 Automated erythrocyte mean corpuscular volume 87 [foz_us] 80-99 Automated erythrocyte mean corpuscular hemoglobin (mass per erythrocyte) 30 pg 25-34 Automated erythrocyte mean corpuscular hemoglobin concentration measurement ( mass/volume) 35 g/dL 32-36 Automated erythrocyte distribution width ratio 11.4 % 10.0-14.5 Automated blood platelet count (count/volume) 215 10*3/uL 130-400 Automated blood platelet mean volume measurement 10.9 [foz_us] 7.4-10.4 Automated blood neutrophils/100 leukocytes 56 % 42-75 Automated blood lymphocytes/100 leukocytes 37 % 12-44 Blood monocytes/100 leukocytes 6 % 0-12 Automated blood eosinophils/100 leukocytes 1 % 0-10 Automated blood basophils/100 leukocytes 1 % 0-10 Blood neutrophils automated count (number/volume) 2.9 10*3 1.8-7.8 Blood lymphocytes automated count (number/volume) 1.9 10*3 1.0-4.0 Blood monocytes automated count (number/volume) 0.3 10*3 0.0-1.0 Automated eosinophil count 0.1 10*3/uL 0.0-0.3 Automated blood basophil count (count/volume) 0.1 10*3/uL 0.0-0.1 PT panel in platelet poor plasma by coagulation assay - 08/19/16 09:25 Prothrombin time (PT) in platelet poor plasma by coagulation assay 13.0 s 12.2-14.7 INR in platelet poor plasma or blood by coagulation assay 1.0 0.8-1.4 Activated partial thromboplastin time (aPTT) in platelet poor plasma bycoagulation assay - 08/19/16 09:25 Activated partial thromboplastin time (aPTT) in platelet poor plasma bycoagulation assay 28 s 24-35 Comprehensive metabolic panel - 08/19/16 09:25 Serum or plasma sodium measurement (moles/volume) 137 mmol/L 135-145 Serum or plasma potassium measurement (moles/volume) 3.7 mmol/L 3.6-5.0 Serum or plasma chloride measurement (moles/volume) 107 mmol/L 98-107 Carbon dioxide 20 mmol/L 21-32 Serum or plasma anion gap determination (moles/volume) 10 mmol/L 5-14 Serum or plasma urea nitrogen measurement (mass/volume) 21 mg/dL 7-18 Serum or plasma creatinine measurement (mass/volume) 0.94 mg/dL 0.60-1.30 Serum or plasma urea nitrogen/creatinine mass ratio 22 NRG Serum or plasma creatinine measurement with calculation of estimated glomerular filtration rate > NRG Serum or plasma glucose measurement (mass/volume) 116 mg/dL 70-105 Serum or plasma calcium measurement (mass/volume) 9.0 mg/dL 8.5-10.1 Serum or plasma total bilirubin measurement (mass/volume) 0.3 mg/dL 0.1-1.0 Serum or plasma alkaline phosphatase measurement (enzymatic activity/volume) 44 U/L 40-136 Serum or plasma aspartate aminotransferase measurement (enzymatic activity/ volume) 15 U/L 5-34 Serum or plasma alanine aminotransferase measurement (enzymatic activity/volume ) 14 U/L 0-55 Serum or plasma protein measurement (mass/volume) 6.6 g/dL 6.4-8.2 Serum or plasma albumin measurement (mass/volume) 4.1 g/dL 3.2-4.5 Magnesium - 08/19/16 09:25 Magnesium 2.2 mg/dL 1.8-2.4 Serum or plasma troponin i.cardiac measurement (mass/volume) - 08/19/16 09:25 Serum or plasma troponin i.cardiac measurement (mass/volume) < ng/ mL <0.30 Myoglobin, serum - 08/19/16 09:25 Myoglobin, serum 42.7 ng/mL 10.0-92.0 Complete urinalysis with reflex to culture - 10/09/16 17:28 Urine color determination YELLOW NRG Urine clarity determination SLIGHTLY CLOUDY NRG Urine pH measurement by test strip 5 5-9 Specific gravity of urine by test strip 1.025 1.016- 1.022 Urine protein assay by test strip, semi-quantitative 2+ NEGATIVE Urine glucose detection by automated test strip NEGATIVE NEGATIVE Erythrocytes detection in urine sediment by light microscopy 1+ NEGATIVE Urine ketones detection by automated test strip NEGATIVE NEGATIVE Urine nitrite detection by test strip NEGATIVE NEGATIVE Urine total bilirubin detection by test strip NEGATIVE NEGATIVE Urine urobilinogen measurement by automated test strip (mass/volume) NORMAL NORMAL Urine leukocyte esterase detection by dipstick 2+ NEGATIVE Automated urine sediment erythrocyte count by microscopy (number/high power field) [HPF] NRG Automated urine sediment leukocyte count by microscopy (number/high power field ) [HPF] NRG Bacteria detection in urine sediment by light microscopy MODERATE NRG Squamous epithelial cells detection in urine sediment by light microscopy 10-25 NRG Crystals detection in urine sediment by light microscopy NONE NRG Casts detection in urine sediment by light microscopy NONE NRG Mucus detection in urine sediment by light microscopy NEGATIVE NRG Complete urinalysis with reflex to culture YES NRG Bacterial urine culture - 10/09/16 17:28 URINE CULTURE RESULTS <10,000/ML NRG Complete blood count (CBC) with automated white blood cell (WBC) differential - 10/09/16 17:36 Blood leukocytes automated count (number/volume) 12.1 10*3/uL 4.3-11.0 Blood erythrocytes automated count (number/volume) 4.73 10*6/uL 4.35-5.85 Venous blood hemoglobin measurement (mass/volume) 14.3 g/dL 11.5-16.0 Blood hematocrit (volume fraction) 40 % 35-52 Automated erythrocyte mean corpuscular volume 84 [foz_us] 80-99 Automated erythrocyte mean corpuscular hemoglobin (mass per erythrocyte) 30 pg 25-34 Automated erythrocyte mean corpuscular hemoglobin concentration measurement ( mass/volume) 36 g/dL 32-36 Automated erythrocyte distribution width ratio 11.8 % 10.0-14.5 Automated blood platelet count (count/volume) 203 10*3/uL 130-400 Automated blood platelet mean volume measurement 11.5 [foz_us] 7.4-10.4 Automated blood neutrophils/100 leukocytes 93 % 42-75 Automated blood lymphocytes/100 leukocytes 4 % 12-44 Blood monocytes/100 leukocytes 3 % 0-12 Automated blood eosinophils/100 leukocytes 0 % 0-10 Automated blood basophils/100 leukocytes 0 % 0-10 Blood neutrophils automated count (number/volume) 11.2 10*3 1.8-7.8 Blood lymphocytes automated count (number/volume) 0.5 10*3 1.0-4.0 Blood monocytes automated count (number/volume) 0.3 10*3 0.0-1.0 Automated eosinophil count 0.1 10*3/uL 0.0-0.3 Automated blood basophil count (count/volume) 0.0 10*3/uL 0.0-0.1 Comprehensive metabolic panel - 10/09/16 17:36 Serum or plasma sodium measurement (moles/volume) 139 mmol/L 135-145 Serum or plasma potassium measurement (moles/volume) 3.1 mmol/L 3.6-5.0 Serum or plasma chloride measurement (moles/volume) 106 mmol/L 98-107 Carbon dioxide 21 mmol/L 21-32 Serum or plasma anion gap determination (moles/volume) 12 mmol/L 5-14 Serum or plasma urea nitrogen measurement (mass/volume) 21 mg/dL 7-18 Serum or plasma creatinine measurement (mass/volume) 1.01 mg/dL 0.60-1.30 Serum or plasma urea nitrogen/creatinine mass ratio 21 NRG Serum or plasma creatinine measurement with calculation of estimated glomerular filtration rate 60 NRG Serum or plasma glucose measurement (mass/volume) 130 mg/dL 70-105 Serum or plasma calcium measurement (mass/volume) 9.2 mg/dL 8.5-10.1 Serum or plasma total bilirubin measurement (mass/volume) 0.7 mg/dL 0.1-1.0 Serum or plasma alkaline phosphatase measurement (enzymatic activity/volume) 51 U/L 40-136 Serum or plasma aspartate aminotransferase measurement (enzymatic activity/ volume) 17 U/L 5-34 Serum or plasma alanine aminotransferase measurement (enzymatic activity/volume ) 18 U/L 0-55 Serum or plasma protein measurement (mass/volume) 7.5 g/dL 6.4-8.2 Serum or plasma albumin measurement (mass/volume) 4.6 g/dL 3.2-4.5 Lipase - 10/09/16 17:36 Lipase 26 U/L 8-78 Blood manual differential performed detection - 10/09/16 17:36 Blood monocytes/100 leukocytes 2 % NR Manual blood segmented neutrophils/100 leukocytes 87 % NRG Blood band neutrophils/100 leukocytes 6 % NRG Manual blood lymphocytes/100 leukocytes 5 % NRG Manual eosinophils/100 leukocytes in nose 0 % NR Manual blood basophils/100 leukocytes 0 % NRG Blood erythrocyte morphology finding identification NORMAL NR Complete blood count (CBC) with automated white blood cell (WBC) differential - 01/29/18 11:20 Blood leukocytes automated count (number/volume) 6.2 10*3/uL 4.3-11.0 Blood erythrocytes automated count (number/volume) 4.11 10*6/uL 4.35-5.85 Venous blood hemoglobin measurement (mass/volume) 11.8 g/dL 11.5-16.0 Blood hematocrit (volume fraction) 35 % 35-52 Automated erythrocyte mean corpuscular volume 84 [foz_us] 80-99 Automated erythrocyte mean corpuscular hemoglobin (mass per erythrocyte) 29 pg 25-34 Automated erythrocyte mean corpuscular hemoglobin concentration measurement ( mass/volume) 34 g/dL 32-36 Automated erythrocyte distribution width ratio 12.2 % 10.0-14.5 Automated blood platelet count (count/volume) 187 10*3/uL 130-400 Automated blood platelet mean volume measurement 11.1 [foz_us] 7.4-10.4 Automated blood neutrophils/100 leukocytes 64 % 42-75 Automated blood lymphocytes/100 leukocytes 27 % 12-44 Blood monocytes/100 leukocytes 7 % 0-12 Automated blood eosinophils/100 leukocytes 2 % 0-10 Automated blood basophils/100 leukocytes 1 % 0-10 Blood neutrophils automated count (number/volume) 4.0 10*3 1.8-7.8 Blood lymphocytes automated count (number/volume) 1.7 10*3 1.0-4.0 Blood monocytes automated count (number/volume) 0.4 10*3 0.0-1.0 Automated eosinophil count 0.1 10*3/uL 0.0-0.3 Automated blood basophil count (count/volume) 0.0 10*3/uL 0.0-0.1 Fibrin D-dimer FEU measurement in platelet poor plasma (mass/volume) - 11:20 Fibrin D-dimer FEU measurement in platelet poor plasma (mass/volume) < ug/mL 0.00-0.49 Comprehensive metabolic panel - 01/29/18 11:20 Serum or plasma sodium measurement (moles/volume) 136 mmol/L 135-145 Serum or plasma potassium measurement (moles/volume) 4.0 mmol/L 3.6-5.0 Serum or plasma chloride measurement (moles/volume) 106 mmol/L 98-107 Carbon dioxide 25 mmol/L 21-32 Serum or plasma anion gap determination (moles/volume) 5 mmol/L 5-14 Serum or plasma urea nitrogen measurement (mass/volume) 16 mg/dL 7-18 Serum or plasma creatinine measurement (mass/volume) 1.11 mg/dL 0.60-1.30 Serum or plasma urea nitrogen/creatinine mass ratio 14 NRG Serum or plasma creatinine measurement with calculation of estimated glomerular filtration rate 54 NRG Serum or plasma glucose measurement (mass/volume) 115 mg/dL 70-105 Serum or plasma calcium measurement (mass/volume) 9.4 mg/dL 8.5-10.1 Serum or plasma total bilirubin measurement (mass/volume) 0.3 mg/dL 0.1-1.0 Serum or plasma alkaline phosphatase measurement (enzymatic activity/volume) 64 U/L 40-136 Serum or plasma aspartate aminotransferase measurement (enzymatic activity/ volume) 15 U/L 5-34 Serum or plasma alanine aminotransferase measurement (enzymatic activity/volume ) 13 U/L 0-55 Serum or plasma protein measurement (mass/volume) 6.8 g/dL 6.4-8.2 Serum or plasma albumin measurement (mass/volume) 4.2 g/dL 3.2-4.5 Serum or plasma troponin i.cardiac measurement (mass/volume) - 01/29/18 11:20 Serum or plasma troponin i.cardiac measurement (mass/volume) < ng/ mL <0.30 Lipase - 01/29/18 11:20 Lipase 32 U/L 8-78 Urine beta human chorionic gonadotropin (hCG) measurement - 12/12/18 16:00 Urine beta human chorionic gonadotropin (hCG) measurement NEGATIVE NEGATIVE Automated blood complete blood count (hemogram) panel - 12/12/18 17:02 Blood leukocytes automated count (number/volume) 6.9 10*3/uL 4.3-11.0 Blood erythrocytes automated count (number/volume) 4.27 10*6/uL 4.35-5.85 Venous blood hemoglobin measurement (mass/volume) 12.0 g/dL 11.5-16.0 Blood hematocrit (volume fraction) 35 % 35-52 Automated erythrocyte mean corpuscular volume 82 [foz_us] 80-99 Automated erythrocyte mean corpuscular hemoglobin (mass per erythrocyte) 28 pg 25-34 Automated erythrocyte mean corpuscular hemoglobin concentration measurement ( mass/volume) 35 g/dL 32-36 Automated erythrocyte distribution width ratio 13.1 % 10.0-14.5 Automated blood platelet count (count/volume) 250 10*3/uL 130-400 Automated blood platelet mean volume measurement 10.6 [foz_us] 7.4-10.4 Comprehensive metabolic panel - 12/12/18 17:02 Serum or plasma sodium measurement (moles/volume) 139 mmol/L 135-145 Serum or plasma potassium measurement (moles/volume) 3.4 mmol/L 3.6-5.0 Serum or plasma chloride measurement (moles/volume) 106 mmol/L 98-107 Carbon dioxide 22 mmol/L 21-32 Serum or plasma anion gap determination (moles/volume) 11 mmol/L 5-14 Serum or plasma urea nitrogen measurement (mass/volume) 19 mg/dL 7-18 Serum or plasma creatinine measurement (mass/volume) 1.04 mg/dL 0.60-1.30 Serum or plasma urea nitrogen/creatinine mass ratio 18 NRG Serum or plasma creatinine measurement with calculation of estimated glomerular filtration rate 58 NRG Serum or plasma glucose measurement (mass/volume) 104 mg/dL 70-105 Serum or plasma calcium measurement (mass/volume) 9.5 mg/dL 8.5-10.1 Serum or plasma total bilirubin measurement (mass/volume) 0.3 mg/dL 0.1-1.0 Serum or plasma alkaline phosphatase measurement (enzymatic activity/volume) 66 U/L 40-136 Serum or plasma aspartate aminotransferase measurement (enzymatic activity/ volume) 15 U/L 5-34 Serum or plasma alanine aminotransferase measurement (enzymatic activity/volume ) 13 U/L 0-55 Serum or plasma protein measurement (mass/volume) 7.2 g/dL 6.4-8.2 Serum or plasma albumin measurement (mass/volume) 4.4 g/dL 3.2-4.5 CALCIUM CORRECTED 9.2 mg/dL 8.5-10.1 Lipase - 12/12/18 17:02 Lipase 34 U/L 8-78 Complete blood count (CBC) with automated white blood cell (WBC) differential - 01/24/19 09:15 Blood leukocytes automated count (number/volume) 5.0 10*3/uL 4.3-11.0 Blood erythrocytes automated count (number/volume) 4.25 10*6/uL 4.35-5.85 Venous blood hemoglobin measurement (mass/volume) 11.8 g/dL 11.5-16.0 Blood hematocrit (volume fraction) 35 % 35-52 Automated erythrocyte mean corpuscular volume 82 [foz_us] 80-99 Automated erythrocyte mean corpuscular hemoglobin (mass per erythrocyte) 28 pg 25-34 Automated erythrocyte mean corpuscular hemoglobin concentration measurement ( mass/volume) 34 g/dL 32-36 Automated erythrocyte distribution width ratio 12.8 % 10.0-14.5 Automated blood platelet count (count/volume) 212 10*3/uL 130-400 Automated blood platelet mean volume measurement 11.2 [foz_us] 7.4-10.4 Automated blood neutrophils/100 leukocytes 64 % 42-75 Automated blood lymphocytes/100 leukocytes 28 % 12-44 Blood monocytes/100 leukocytes 7 % 0-12 Automated blood eosinophils/100 leukocytes 2 % 0-10 Automated blood basophils/100 leukocytes 1 % 0-10 Blood neutrophils automated count (number/volume) 3.2 10*3 1.8-7.8 Blood lymphocytes automated count (number/volume) 1.4 10*3 1.0-4.0 Blood monocytes automated count (number/volume) 0.3 10*3 0.0-1.0 Automated eosinophil count 0.1 10*3/uL 0.0-0.3 Automated blood basophil count (count/volume) 0.0 10*3/uL 0.0-0.1 Blood type T Indirect antibody screen panel - 01/24/19 09:15 ABO+Rh group OP NRG Transfusion band number [id number] NRG Blood group antibody screen NEGATIVE NRG Urine beta human chorionic gonadotropin (hCG) measurement - 01/24/19 09:35 Urine beta human chorionic gonadotropin (hCG) measurement NEGATIVE NEGATIVE Encounters ACCT No. Visit Date/Time Discharge Status Pt. Type Provider Facility Loc./Unit Complaint [id number] 01/21/2019 05:35:00 01/21/2019 13:15:00 DIS Outpatient KAREN LLAMAS DO [facility] PREOP ROBOTIC HYSTERECTOMY [id number] 01/10/2019 08:31:00 01/10/2019 23:59:59 CLS Outpatient KAREN LLAMAS DO [facility] RAD AUB [id number] 12/12/2018 16:47:00 12/12/2018 23:59:59 CLS Outpatient AUNDREA SAN [facility] RAD ABD PAIN [id number] 01/29/2018 09:53:00 01/29/2018 12:49:00 DIS Emergency SWATI CASTELAN APRN [facility] ER CP,SOA [id number] 07/13/2017 16:02:00 07/13/2017 23:59:59 CLS Outpatient KAREN LLAMAS DO [facility] RAD SCREENING [id number] 07/07/2017 12:39:00 07/07/2017 23:59:59 CLS Outpatient KAREN SIN MD [facility] RT CHRONIC COUGH [id number] 10/09/2016 17:17:00 10/09/2016 19:20:00 DIS Emergency SWATI CASTELAN FOOD EDITOR [facility] ER VOMITING, DIARRHEA, HEADACHE [id number] 08/19/2016 09:09:00 08/19/2016 11:31:00 DIS Emergency JAYLIN BARCENAS, MANDEEP San [facility] ER CHEST PAIN [id number] 03/21/2016 08:35:00 03/21/2016 23:59:59 CLS Outpatient ESVIN BARCENAS, JANET Sexton [facility] CARD CHEST PAIN SYNDROME,HTN, TACHICARDIA,GERD [id number] 05/04/2015 15:44:00 05/04/2015 23:59:59 CLS Outpatient THERESE NOBLE MD [facility] RAD [id number] 07/04/2013 06:00:00 07/04/2013 11:15:00 DIS Outpatient KAREN LLAMAS DO [facility] SDC LEFT OVARIAN MASS [id number] 07/02/2013 12:41:00 07/02/2013 23:59:59 CLS Outpatient KAREN LLAMAS DO [facility] PREOP OVARIAN MASS [id number] 06/26/2013 13:55:00 06/26/2013 23:59:59 CLS Outpatient KAREN LLAMAS DO [facility] RAD PELVIC PAIN [id number] 01/24/2019 08:38:00 ACT Outpatient KAREN LLAMAS DO [facility] WS ABN. UTERINE BLEEDING, CPP, DYSMENORRHEA, FIBROIDS 32591 12/03/2018 12:50:00 12/03/2018 23:59:59 [facility]
--- OUTSIDE RECORDS SUMMARY | 2019-01-27 02:18 | XMS REPORT ---
Author Author KRIS BASS Organization [facility] Address [address] [place] [address] Care Team Providers Care Retail Beauty Specialist Name Role Phone ALEJANDRORUBYKRIS Unavailable PROBLEMS Unknown Problems ALLERGIES Substance Reaction Event Type Date Status N.K.D.A. Unknown Non Drug Allergy Nov, Unknown SOCIAL HISTORY No smoking Hx information available PLAN OF CARE Activity Details Follow Up prn Reason: VITAL SIGNS Height 63 in 2016-12-02 Weight 194.2 lbs 2016-12-02 Temperature 97.7 degrees Fahrenheit 2016-12-02 Heart Rate 110 bpm 2016-12-02 Respiratory Rate 18 2016-12-02 BMI 34.40 kg/m2 2016-12-02 Blood pressure systolic 131 mmHg 2016-12-02 Blood pressure diastolic 82 mmHg 2016-12-02 MEDICATIONS Medication Instructions Dosage Frequency Start Date End Date Duration Status Topamax Active Flexeril Active Elavil Active Flonase Allergy Relief 50 MCG/ACT Nasally twice a day 1 spray in each nostril 12h Oct, 30 day(s) Active Potassimin Active Hydrochlorothiazide Active Bleph-10 10 % Ophthalmic 3 times a day and once daily to unaffected eye 1 drop into affected eye Nov, Nov, 05 days Active RESULTS No Results PROCEDURES Procedure Date Ordered Related Diagnosis Body Site Office Visit, Est Pt., Level 3 Dec 02, 2016 IMMUNIZATIONS No Known Immunizations
== END 2019-01-25 09:45 | disposition home or self-care (01) ==
LOC: SDC 08:38 → WS 13:05 → SDC 01-25 09:45
PROVIDERS: ATTEND Obstetrics & Gynecology
DX: D25.1 Intramural leiomyoma of uterus (principal); D25.2 Subserosal leiomyoma of uterus; N80.0 Endometriosis of uterus; N93.9 Abnormal uterine and vaginal bleeding, unspecified; I10 Essential (primary) hypertension; K21.9 Gastro-esophageal reflux disease without esophagitis; E66.01 Morbid (severe) obesity due to excess calories; Z68.33 Body mass index [BMI] 33.0-33.9, adult; Z79.899 Other long term (current) drug therapy
CPT/HCPCS: 36415; 84703; 85025; 86850; 86900; 86901; 87081; 88307; 94664

== ENCOUNTER → 2020-09-30 | Outpatient (CLI) | payer BC ==
[~2020-09-30] MED LIST changes: +DOCU100C37 PO; +HYDR-34 PO; +IBUP-844 PO; -METO-387 PO; +MTP25TSR PO; +SIME80TA16 PO; +[UNRECOGNIZED DRUG - CODE]; -[UNRECOGNIZED DRUG - CODE]
== END ==
LOC: LABNPT 06:01
PROVIDERS: ATTEND Physician Assistant
DX: R51.9 Headache, unspecified (principal); R09.89 Other specified symptoms and signs involving the circulatory and respiratory systems; Z20.828 Contact with and (suspected) exposure to other viral communicable diseases
CPT/HCPCS: 87635

== ENCOUNTER 2020-12-18 08:31 | Emergency (ER) | payer BC ==
[~2020-12-18] VITALS: Ht 162 cm; Wt 95.0 kg
[2020-12-18] MEDS ORDERED: KETOROLAC 30 MG/ML VIAL IVP ONE (08:45)
[2020-12-18] MEDS ORDERED: NS IV 1000 ML 1,000 ML IV SCH (08:45)
[2020-12-18] MEDS ORDERED: PROMETHAZINE INJ 25 MG/ML (PHENERGAN) AMP IVP ONE (08:45)
--- NOTE | 2020-12-18 08:50 | ED Headache ---
General Stated Complaint: MIGRAINE Source: patient Exam Limitations: no limitations (ANDREW MCCALL MED STUDENT) History of Present Illness Date Seen by Provider: Dec 18, 2020 Time Seen by Provider: 08:40 Initial Comments This is a 45 year old female presenting to the Emergency Department via ambulation for a chief complaint of headache at 6:30 AM today. She had someone take her blood pressure twice. Both blood pressures were 216/140. The patient stated her arm felt weird, her vision was hazy, and she had a pounding headache that was an 8/10 pain. She took her blood pressure and migraine and ibuprofen this morning. In the ER, she complains of nausea but denies having it previously. Her blood pressure in the ER is 119/89. She states she hasn't had a headache this bad since April. She denies abdominal pain, cough, fever, SOB, diarrhea, or constipation. She sees Dr. Noble. (ANDREW MCCALL MED STUDENT) Initial Comments Patient took Zomig and ibuprofen this morning to try to treat the headache. (MANDEEP MOSQUEDA MD) Allergies and Home Medications Allergies Coded Allergies: pseudoephedrine HCl (Unverified Allergy, Unknown, 10/09/16) triprolidine HCl (Unverified Allergy, Unknown, 10/09/16) Home Medications Amitriptyline HCl 25 Mg Tablet, 25 MG PO DAILY, (Reported) Cyclobenzaprine HCl 10 Mg Tablet, 5 MG PO DAILY, (Reported) TAKE 1/2 OF 10MG TAB Cyclobenzaprine HCl 10 Mg Tablet, 10 MG PO HS, (Reported) Docusate Sodium 100 Mg Capsule, 100 MG PO BID PRN for CONSTIPATION-1ST LINE Prescribed by: KAREN LLAMAS on 01/24/19939 Esomeprazole Magnesium 20 Mg Capsule.dr, 20 MG PO DAILY, (Reported) Hydrocodone Bit/Acetaminophen 1 Ea Tablet, 2 EA PO Q6H PRN for Pain-See Instructions Prescribed by: KAREN LLAMAS on 01/24/19939 Ibuprofen 600 Mg Tablet, 600 MG PO Q6H PRN for PAIN-MODERATE Prescribed by: KAREN LLAMAS on 01/24/19939 Losartan/Hydrochlorothiazide 1 Each Tablet, 1 TAB PO DAILY, (Reported) Melatonin Unknown Strength Tablet, 1 TAB PO HS PRN for SLEEP, (Reported) Metoprolol Succinate 25 Mg Tab.er.24h, 25 MG PO HS, (Reported) Potassium Chloride 10 Meq Tablet.er, 10 MEQ PO DAILY, (Reported) Simethicone 80 Mg Tab.chew, 40 MG PO TID PRN for INDIGESTION 2ND LINE Prescribed by: KAREN LLAMAS on 01/24/19 0940 Topiramate 100 Mg Tablet, 100 MG PO BID, (Reported) Patient Home Medication List Home Medication List Reviewed: Yes (MANDEEP MOSQUEDA MD) Review of Systems Review of Systems Constitutional: no symptoms reported; No fever Eyes: Blurred Vision Ears, Nose, Mouth, Throat: no symptoms reported Respiratory: no symptoms reported; No cough, No short of breath Cardiovascular: no symptoms reported Gastrointestinal: No constipation, No diarrhea; nausea Genitourinary: no symptoms reported Musculoskeletal: no symptoms reported Skin: no symptoms reported Psychiatric/Neurological: Headache (pounding) (ANDREW MCCALL) Past Uqvrvno-Xeazfp-Lucfrp Hx Past Med/Social Hx: Reviewed Nursing Past Med/Soc Hx (MANDEEP MOSQUEDA MD) Patient Social History Recent Hopitalizations: No (ANDREW MCCALL) Immunizations Up To Date Tetanus Booster (TDap): Less than 5yrs (ANDREW MCCALL) Seasonal Allergies Seasonal Allergies: No (ANDREW MCCALL) Past Medical History Surgeries: Yes (TEETH EXTRACTION, OVARIAN CYSTECTOMY) Cardiac, Oophorectomy, Tubal Ligation Respiratory: No Cardiac: Yes Hypertension Neurological: Yes (MIGRAINES) Headaches /Migraines Reproductive Disorders: Yes (OVARIAN MASS, dysmenorrhea) RAYON TESTER History: Tubal Ligation Genitourinary: No Gastrointestinal: Yes Gastroesophageal Reflux, Chronic Constipation Musculoskeletal: No Endocrine: No HEENT: Yes (DENTURES) Cancer: No Psychosocial: No Integumentary: No Blood Disorders: No (ANDREW MCCALL) Family Medical History Colon cancer 19 MOTHER Diabetes mellitus 19 FATHER Drug abuse 19 FATHER Cancer, Diabetes, Hypertension (ANDREW MCCALL) Physical Exam Vital Signs Vital Signs - First Documented 12/18/20 08:35 Temp 35.4 Pulse 73 Resp 18 B/P (MAP) 133/87 (102) Pulse Ox 97 (MANDEEP MOSQUEDA MD) Vital Signs Capillary Refill : (ANDREW MCCALL X MED STUDENT) Height, Weight, BMI Height: 5'4.00" Weight: 194lbs. 0.0oz. [id number]; 33.3 BMI Method:Stated General Appearance: WD/WN, no apparent distress (ANDREW MCCALL MED STUDENT) HEENT: PERRL/EOMI, normal ENT inspection Cardiovascular: regular rate, rhythm, no edema, no murmur Respiratory: lungs clear, normal breath sounds, no respiratory distress Gastrointestinal: normal bowel sounds, non tender, soft Extremities: normal inspection, no pedal edema Psychiatric: alert, oriented x 3 Crainal Nerves: normal speech, PERRL Motor/Sensory: no motor deficit, no sensory deficit Skin: normal color, warm/dry (MANDEEP MOSQUEDA MD) Progress/Results/Core Measures Results/Orders My Orders Orders - MANDEEP MOSQUEDA MD Ketorolac Injection (Toradol Injection) (12/18/20 08:45) Promethazine Injection (Phenergan Injec (12/18/20 08:45) Ed Iv/Invasive Line Start (12/18/20 08:42) Ns Iv 1000 Ml (Sodium Chloride 0.9%) (12/18/20 08:45) (MANDEEP MOSQUEDA MD) Medications Given in ED Current Medications Medications Dose Ordered Sig/Koko Route Start Time Stop Time Status Last Admin Dose Admin Ketorolac Tromethamine 15 mg ONCE ONCE IVP 12/18/20 08:45 12/18/20 08:46 DC 12/18/20 08:56 15 MG Promethazine HCl 25 mg ONCE ONCE IVP 12/18/20 08:45 12/18/20 08:46 DC 12/18/20 08:58 25 MG (MANDEEP MOSQUEDA MD) Vital Signs/I&O 12/18/20 12/18/20 08:35 10:22 Temp 35.4 Pulse 73 73 Resp 18 18 B/P (MAP) 133/87 (102) 98/75 (102) Pulse Ox 97 97 (MANDEEP MOSQUEDA MD) Progress Progress Note : Time: 08:45 Progress Note - The blood pressure in the room has decreased to 119/89. An IV line was established and saline fluids were started. Promethazine and Ketorolac were ordered for pain and headache. Patient will be monitored for changes. (ANDREW MCCALL MED STUDENT) Progress Note : Time: 09:58 Progress Note Patient received Toradol and Phenergan along with approximately 400 mL of IV fluid. Her headache improved satisfactorily. Blood pressure was normal during her ER stay. She was ready for discharge home. The unusually high blood pressure she experienced at work may have been related to zolmitriptan use. She is being advised to discuss this with her prescribing provider before using again. (MANDEEP MOSQUEDA MD) Departure Impression Primary Impression: Migraine Qualified Codes: G43.109 - Migraine with aura, not intractable, without status migrainosus Disposition: 01 HOME, SELF-CARE Condition: Improved Departure-Patient Inst. Decision time for Depature: 09:59 (MANDEEP MOSQUEDA MD) Referrals: THERESE NOBLE MD (PCP/Family) Primary Care Physician Patient Instructions: Migraines (DC) Add. Discharge Instructions: Drink plenty of clear liquids to stay well-hydrated. You may use your nausea medicines as previously prescribed. Zolmitriptan has a known adverse reaction of causing high blood pressure. This may explain the high blood pressure you had at work. Please check with your prescribing provider before taking zolmitriptan again. For pain you may take ibuprofen up to 600 mg every 6 hours and/or Tylenol (acetaminophen) up to 1000 mg every 6 hours. Call with questions or concerns. Return to the emergency room if you have worsening symptoms. Work/School Note: Work Release Form Date Seen in the Emergency Department: Dec 18, 2020 Return to Work: Dec 19, 2020 Restrictions: No Restrictions Copy Copies To 1: THERESE NOBLE MD, ELIZABETH X MED STUDENT Dec 18, 2020 08:50 MANDEEP MOSQUEDA MD Dec 18, 2020 09:55
[2020-12-18 10:22] VITALS: BP 98/75
== END 2020-12-18 10:22 | disposition home or self-care (01) ==
LOC: EDUNIT# 08:31 → ER 08:32
DX: G43.909 Migraine, unspecified, not intractable, without status migrainosus (principal); K21.9 Gastro-esophageal reflux disease without esophagitis; I10 Essential (primary) hypertension; Z88.8 Allergy status to other drugs, medicaments and biological substances; Z82.49 Family history of ischemic heart disease and other diseases of the circulatory system; Z83.3 Family history of diabetes mellitus; Z80.0 Family history of malignant neoplasm of digestive organs

== ENCOUNTER → 2021-04-09 | Outpatient (CLI) | payer BC ==
[~2021-04-09] MED LIST changes: +GADOBUTROL 10 MMOL/10 ML (GADAVIST) VIAL IV ONE
--- NOTE | 2021-04-09 09:06 | Diagnostic Imaging Report ---
Clinical indication: Patient with headaches. No other complaints. Exam: MRI of the brain performed without and with 10 cc of Gadavist IV contrast. Sequences include axial DWI, ADC map, axial gradient echo, axial T2, axial FLAIR, axial T1, axial T1 post IV contrast, coronal T1 fat-sat post IV contrast, and sagittal T1 post IV contrast. Comparison: Head CT without contrast dated 05/04/2015. Findings: There is no evidence of acute cerebral infarct, intracranial hemorrhage, or gross mass effect. The brain parenchymal volume appears appropriate for patient's age. There is normal murray-white matter distinction. There is no significant midline shift or herniation. The skull [place] vascular structures show no gross abnormality as visualized. The pituitary gland, sella, and suprasellar regions are unremarkable as visualized. There is no evidence of hydrocephalus. The basal cisterns are unremarkable. The skull, extracranial soft tissue, and orbits are unremarkable. The paranasal sinuses are unremarkable. Temporal bones show no significant abnormality. Impression: Unremarkable MRI of the brain. Dictated by: Dictated on workstation # [id number]
== END ==
LOC: RAD 07:46
PROVIDERS: ATTEND Nurse Practitioner Family
DX: R51.9 Headache, unspecified (principal)
CPT/HCPCS: 70553